=== PATIENT | male | born 1975 | race African-American/Black ===

== ENCOUNTER 2022-07-05 23:35 | Emergency (ER) | payer OTHER ==
[~2022-07-05] VITALS: Ht 182.9 cm; Wt 106.6 kg
[2022-07-05] MEDS ORDERED: NEOSPORIN OIN28.3 GM TOP (23:51)
[2022-07-05] MEDS ORDERED: IBUPROFEN600 MG PO (23:51)
== END 2022-07-06 00:02 | disposition home or self-care (01) ==
LOC: FSED 23:41
DX: T21.11XA Burn of first degree of chest wall, initial encounter (principal); T54.2X1A Toxic effect of corrosive acids and acid-like substances, accidental (unintentional), initial encounter; Y99.0 Civilian activity done for income or pay
CPT/HCPCS: 99282